=== PATIENT | male | born 1960 | race American Indian/Alaskan Native ===

== ENCOUNTER 2018-10-02 09:11 | Emergency (ER) | payer SELFPAY ==
[2018-10-02 09:36] VITALS: BP 143/91
[2018-10-02] MEDS ORDERED: DECADRON IM ONE (10:26)
[2018-10-02] MEDS ORDERED: BICILLIN L-A IM ONE (10:26)
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
--- NOTE | 2018-10-02 11:41 | XRay Report ---
Chest 2 views: Next History: Coughing. Findings: Cardiomegaly. Trachea is midline. No consolidation, pneumothorax or pleural effusion. Impression: No acute cardiopulmonary findings
== END 2018-10-02 11:20 | disposition home or self-care (01) ==
LOC: ED 09:11
DX: J02.9 Acute pharyngitis, unspecified (principal); I10 Essential (primary) hypertension; Z79.899 Other long term (current) drug therapy
CPT/HCPCS: 71046; 96372; 99283; J0561; J1100

== ENCOUNTER 2019-02-07 11:12 | Emergency (ER) | payer SELFPAY ==
--- NOTE | 2019-02-07 11:21 | Event Note ---
ED Screening Note Date of service: 02/07/19 Time: 11:17 ED Screening Note: 58 y/o male c/o with epigastric pain times 1 week with some SOB. PMH HTN, sleep apnea. Patient has been out of his blood pressure medication time 1 wekk. No PCP. This initial assessment/diagnostic orders/clinical plan/treatment(s) is/are subject to change based on patients health status, clinical progression and re- assessment by fellow clinical providers in the ED. Further treatment and workup at subsequent clinical providers discretion. Patient/guardian urged not to elope from the ED as their condition may be serious if not clinically assessed and managed. Initial orders include:
[2019-02-07 12:15] LABS: Bacteria,Urine 1+ /HPF (Negative); Bilirubin,Urine NEG (Negative); Blood,Urine NEG (Negative); Color,Urine Amber (Yellow); Hyaline Casts,Urine 1 /LPF; Mucus,Urine FEW /HPF
--- NOTE | 2019-02-07 12:30 | Emergency Department Report ---
ED Abdominal Pain HPI - General Chief Complaint: Abdominal Pain Stated Complaint: HARIS/ABD BLOCKAGE Time Seen by Provider: 02/07/19 11:17 Source: patient Mode of arrival: Ambulatory Limitations: No Limitations - History of Present Illness Initial Comments: Mr. Khan is a 58 yo male with hx of HTN, sleep apnea, who presents with constipation for one week. Has had small bowel movements with MiraLAX and prune juice. However now has such constipation and he has difficulty breathing at night due to abdominal bloating. Denies any abdominal pain. Denies chest pain. He admits to a poor quality diet. He is currently uninsured. He is followed at [facility]. He has been out his blood pressure medicine for one week. He takes lisinopril 20 mg tablets. No history of abdominal surgery. No history of colonoscopy. MD Complaint: abdominal pain -: Gradual, week(s) (1) Location: diffuse Severity: mild Quality: fullness Consistency: constant Improves With: nothing Worsens With: nothing Associated Symptoms: denies other symptoms - Related Data Home Medications Medication Instructions Recorded Confirmed Last Taken Lisinopril [Zestril TAB] 20 mg PO QDAY 04/03/13 04/03/13 04/03/13 08:00 Previous Rx's Medication Instructions Recorded Last Taken Type Albuterol Sulfate [Ventolin HFA] 2 puff IH Q4H PRN #1 hfa.aer.ad 04/03/13 Unknown Rx Benzonatate [Tessalon Perle] 100 mg PO TID PRN #30 capsule 04/03/13 Unknown Rx Ciprofloxacin HCl [Ciprofloxacin 500 mg PO BID #14 tablet 04/03/13 Unknown Rx TAB] Cyclobenzaprine HCl [FLEXERIL] 10 mg PO TID PRN #15 tablet 04/03/13 Unknown Rx Ibuprofen [Motrin 800 MG tab] 800 mg PO TID PRN #20 tablet 04/03/13 Unknown Rx amLODIPine [Norvasc] 5 mg PO DAILY #30 tab 04/03/13 Unknown Rx HYDROcodone/ACETAMINOPHEN 15 ml PO Q6H PRN #150 solution 10/02/18 Unknown Rx [Hydrocodon-Acetamin 7.5-325/15] predniSONE [Deltasone] 20 mg PO QDAY #5 tab 10/02/18 Unknown Rx Apixaban [Eliquis] 5 mg PO BID 30 Days #60 tablet 02/07/19 Unknown Rx Lisinopril [Zestril TAB] 20 mg PO QDAY #30 tablet 02/07/19 Unknown Rx Magnesium Citrate [Citrate of 300 ml PO NOW #1 bottle 02/07/19 Unknown Rx Magnesia] Metoprolol [Lopressor TAB] 50 mg PO BID 30 Days #60 tablet 02/07/19 Unknown Rx Allergies Allergy/AdvReac Type Severity Reaction Status Date / Time No Known Allergies Allergy Verified 10/02/18 09:27 ED Review of Systems ROS: Stated complaint: HARIS/ABD BLOCKAGE Other details as noted in HPI Comment: All other systems reviewed and negative Constitutional: denies: fever, malaise Respiratory: shortness of breath Cardiovascular: denies: chest pain Gastrointestinal: abdominal pain. denies: nausea, vomiting, diarrhea ED Past Medical Hx - Past Medical History Previous Medical History?: Yes Hx Hypertension: Yes Additional medical history: sleep apnea (has CPAP) - Surgical History Past Surgical History?: No - Social History Smoking Status: Never Smoker Substance Use Type: Alcohol - Medications Home Medications: Home Medications Medication Instructions Recorded Confirmed Last Taken Type Albuterol Sulfate [Ventolin HFA] 2 puff IH Q4H PRN #1 hfa.aer.ad 04/03/13 Unknown Rx Benzonatate [Tessalon Perle] 100 mg PO TID PRN #30 capsule 04/03/13 Unknown Rx Ciprofloxacin HCl [Ciprofloxacin 500 mg PO BID #14 tablet 04/03/13 Unknown Rx TAB] Cyclobenzaprine HCl [FLEXERIL] 10 mg PO TID PRN #15 tablet 04/03/13 Unknown Rx Ibuprofen [Motrin 800 MG tab] 800 mg PO TID PRN #20 tablet 04/03/13 Unknown Rx Lisinopril [Zestril TAB] 20 mg PO QDAY 04/03/13 04/03/13 04/03/13 08:00 History amLODIPine [Norvasc] 5 mg PO DAILY #30 tab 04/03/13 Unknown Rx HYDROcodone/ACETAMINOPHEN 15 ml PO Q6H PRN #150 solution 10/02/18 Unknown Rx [Hydrocodon-Acetamin 7.5-325/15] predniSONE [Deltasone] 20 mg PO QDAY #5 tab 10/02/18 Unknown Rx Apixaban [Eliquis] 5 mg PO BID 30 Days #60 tablet 02/07/19 Unknown Rx Lisinopril [Zestril TAB] 20 mg PO QDAY #30 tablet 02/07/19 Unknown Rx Magnesium Citrate [Citrate of 300 ml PO NOW #1 bottle 02/07/19 Unknown Rx Magnesia] Metoprolol [Lopressor TAB] 50 mg PO BID 30 Days #60 tablet 02/07/19 Unknown Rx ED Physical Exam - General Limitations: No Limitations General appearance: alert, in no apparent distress - Head Head exam: Present: atraumatic, normocephalic - Eye Eye exam: Present: normal appearance - ENT ENT exam: Present: mucous membranes moist - Neck Neck exam: Present: normal inspection, full ROM - Respiratory Respiratory exam: Present: normal lung sounds bilaterally. Absent: respiratory distress, wheezes, rales, rhonchi - Cardiovascular Cardiovascular Exam: Present: normal rhythm, tachycardia, irregular rhythm, normal heart sounds. Absent: systolic murmur, diastolic murmur, rubs, gallop - GI/Abdominal GI/Abdominal exam: Present: soft, normal bowel sounds. Absent: distended, tenderness, guarding, rigid - Rectal Rectal exam: Present: deferred - Extremities Exam Extremities exam: Present: normal inspection - Back Exam Back exam: Present: normal inspection - Neurological Exam Neurological exam: Present: alert, oriented X3 - Psychiatric Psychiatric exam: Present: normal affect, normal mood - Skin Skin exam: Present: warm, dry, intact, normal color. Absent: rash ED Course Vital Signs 02/07/19 02/07/19 02/07/19 11:18 13:39 13:45 Temperature 97.7 F Pulse Rate 55 L 108 H 115 H Respiratory 18 14 Rate Blood Pressure 177/121 179/112 O2 Sat by Pulse 96 Oximetry 02/07/19 02/07/19 02/07/19 13:46 14:00 14:16 Temperature Pulse Rate 107 H 107 H 96 H Respiratory 15 18 17 Rate Blood Pressure 170/123 183/140 181/109 O2 Sat by Pulse 99 97 99 Oximetry 02/07/19 02/07/19 02/07/19 14:25 14:30 14:46 Temperature Pulse Rate 116 H 111 H 91 H Respiratory 12 14 Rate Blood Pressure 188/177 181/109 188/117 O2 Sat by Pulse 99 99 Oximetry 02/07/19 02/07/19 02/07/19 15:00 15:16 15:30 Temperature Pulse Rate 98 H 95 H 95 H Respiratory 24 14 28 H Rate Blood Pressure 188/117 173/114 173/114 O2 Sat by Pulse 96 99 96 Oximetry 02/07/19 02/07/19 02/07/19 15:46 16:00 16:04 Temperature Pulse Rate 91 H 84 82 Respiratory 20 26 H 26 H Rate Blood Pressure 158/112 158/112 158/112 O2 Sat by Pulse 98 94 96 Oximetry 02/07/19 02/07/19 02/07/19 16:06 16:08 16:09 Temperature Pulse Rate 87 86 89 Respiratory 24 20 13 Rate Blood Pressure 158/112 158/112 134/106 O2 Sat by Pulse 97 97 98 Oximetry 02/07/19 02/07/19 02/07/19 16:10 16:12 16:14 Temperature Pulse Rate 93 H 87 92 H Respiratory 24 28 H 21 Rate Blood Pressure 134/106 134/106 134/106 O2 Sat by Pulse 96 95 99 Oximetry 02/07/19 02/07/19 02/07/19 16:16 16:18 16:20 Temperature Pulse Rate 80 86 83 Respiratory 26 H 22 22 Rate Blood Pressure 124/98 124/98 124/98 O2 Sat by Pulse 96 96 97 Oximetry 02/07/19 02/07/19 02/07/19 16:22 16:24 16:25 Temperature Pulse Rate 90 85 87 Respiratory 25 H 17 Rate Blood Pressure 124/98 124/98 124/98 O2 Sat by Pulse 97 97 Oximetry ED Medical Decision Making - Lab Data Result diagrams: 02/07/19 12:14 02/07/19 12:14 Laboratory Results - last 24 hr 02/07/19 02/07/19 02/07/19 11:29 12:14 12:14 WBC 3.5 L RBC 5.43 H Hgb 16.3 H Hct 49.5 H MCV 91 MCH 30 MCHC 33 RDW 13.6 Plt Count 168 Lymph % (Auto) 30.0 [place] % (Auto) 14.3 H Eos % (Auto) 0.8 Baso % (Auto) 2.2 H Lymph # 1.1 L [place] # 0.5 Eos # 0.0 Baso # 0.1 Seg Neutrophils % 52.7 Seg Neutrophils # 1.9 D-Dimer Sodium 140 Potassium 4.3 Chloride 101.2 Carbon Dioxide 24 Anion Gap 19 BUN 14 Creatinine 1.3 Estimated GFR > 60 BUN/Creatinine Ratio 11 Glucose 88 Calcium 9.2 Total Bilirubin 1.10 AST 25 ALT 21 Alkaline Phosphatase 69 Troponin T NT-Pro-B Natriuret Pep Total Protein 7.5 Albumin 4.0 Albumin/Globulin Ratio 1.1 Lipase 14 TSH Urine Color Tiffany Urine Turbidity Clear Urine pH 5.0 Ur Specific [place] 1.029 Urine Protein 100 mg/dl Urine Glucose (UA) Neg Urine Ketones Neg Urine Blood Neg Urine Nitrite Neg Urine Bilirubin Neg Urine Urobilinogen 2.0 Ur Leukocyte Esterase Neg Urine WBC (Auto) 3.0 Urine RBC (Auto) 1.0 U Epithel Cells (Auto) 1.0 Urine Bacteria (Auto) 1+ Hyaline Casts 1 Urine Mucus Few 02/07/19 02/07/19 02/07/19 12:14 13:20 13:20 WBC RBC Hgb Hct MCV MCH MCHC RDW Plt Count Lymph % (Auto) [place] % (Auto) Eos % (Auto) Baso % (Auto) Lymph # [place] # Eos # Baso # Seg Neutrophils % Seg Neutrophils # D-Dimer Sodium Potassium Chloride Carbon Dioxide Anion Gap BUN Creatinine Estimated GFR BUN/Creatinine Ratio Glucose Calcium Total Bilirubin AST ALT Alkaline Phosphatase Troponin T < 0.010 NT-Pro-B Natriuret Pep 2648 H Total Protein Albumin Albumin/Globulin Ratio Lipase TSH 1.690 Urine Color Urine Turbidity Urine pH Ur Specific [place] Urine Protein Urine Glucose (UA) Urine Ketones Urine Blood Urine Nitrite Urine Bilirubin Urine Urobilinogen Ur Leukocyte Esterase Urine WBC (Auto) Urine RBC (Auto) U Epithel Cells (Auto) Urine Bacteria (Auto) Hyaline Casts Urine Mucus 02/07/19 14:36 WBC RBC Hgb Hct MCV MCH MCHC RDW Plt Count Lymph % (Auto) [place] % (Auto) Eos % (Auto) Baso % (Auto) Lymph # [place] # Eos # Baso # Seg Neutrophils % Seg Neutrophils # D-Dimer 616.72 H Sodium Potassium Chloride Carbon Dioxide Anion Gap BUN Creatinine Estimated GFR BUN/Creatinine Ratio Glucose Calcium Total Bilirubin AST ALT Alkaline Phosphatase Troponin T NT-Pro-B Natriuret Pep Total Protein Albumin Albumin/Globulin Ratio Lipase TSH Urine Color Urine Turbidity Urine pH Ur Specific [place] Urine Protein Urine Glucose (UA) Urine Ketones Urine Blood Urine Nitrite Urine Bilirubin Urine Urobilinogen Ur Leukocyte Esterase Urine WBC (Auto) Urine RBC (Auto) U Epithel Cells (Auto) Urine Bacteria (Auto) Hyaline Casts Urine Mucus - EKG Data 02/07/19 12:44 EKG obtained 1244 Atrial flutter rapid ventricular rate 120 beats a minute normal axis prolonged QTC positive LVH no ST elevation - Radiology Data Radiology results: report reviewed - Medical Decision Making Mr. Khan presents with constipation leading to discomfort and shortness of breath. No indication of congestive heart failure or ACS or pneumonia. +new onset atrial flutter, hx of alcohol use I discussed case with hospitalist Dr. Kilpatrick. He recommended outpatient therapy with lupus. I did agree that this case would be appropriate in the outpatient setting. I have prescribed Eliquis. He was given Eliquis Coupon. Dr. Kilpatrick has agreed to f/u with Mr. Khan in the outpatient setting. With by mouth metoprolol, repeat heart rate 80 beats for minute. I provided extensive verbal education and instruction. With elevated D dimer and reports of shortness of breath. CT angiogram negative for PTE. Mild interstitial edema. Discharged to home. Critical care attestation.: If time is entered above; I have spent that time in minutes in the direct care of this critically ill patient, excluding procedure time. ED Disposition Clinical Impression: Constipation, Atrial flutter with rapid ventricular response Disposition: DC-01 TO HOME OR SELFCARE Is pt being admited?: No Does the pt Need Aspirin: No Condition: Stable Instructions: Atrial Flutter (ED) Additional Instructions: You have an irregular heart beat. You will need to take the blood thinner Eliquis in order to prevent stroke. Please use the coupon given to you for a free 30 day supply. Prescriptions: Magnesium Citrate [Citrate of Magnesia] 300 ml PO NOW #1 bottle Apixaban [Eliquis] 5 mg PO BID 30 Days #60 tablet Metoprolol [Lopressor TAB] 50 mg PO BID 30 Days #60 tablet Lisinopril [Zestril TAB] 20 mg PO QDAY #30 tablet Referrals: JOSÉ KILPATRICK MD [Staff Physician] - 3-5 Days
[2019-02-07] MEDS ORDERED: METOPROLOL TARTRATE 50 MG TAB PO ONE ×3 (12:46→14:08)
[2019-02-07 12:55] LABS: Basophils % (Auto) 2.2 % (0.0-1.8); Eosinophils % (Auto) 0.8 % (0.0-4.3); Hematocrit 49.5 % (35.5-45.6); Hemoglobin 16.3 gm/dl (11.8-15.2); Lymphocytes # (Auto) 1.1 K/mm3 (1.2-5.4); Mean Corpuscular HGB Conc 33 % (32-34); Mean Corpuscular Volume 91 fl (84-94); Monocytes % (Auto) 14.3 % (0.0-7.3); Red Blood Count 5.43 M/mm3 (3.65-5.03); Red Cell Distribution Width 13.6 % (13.2-15.2)
[2019-02-07 12:56] LABS: Basophils # (Auto) 0.1 K/mm3 (0.0-0.1); Monocytes # (Auto) 0.5 K/mm3 (0.0-0.8)
[2019-02-07 12:58] LABS: Alanine Aminotransferase 21 units/L (7-56); BUN/Creatinine Ratio 11; Blood Urea Nitrogen 14 mg/dL (9-20); Calcium 9.2 mg/dL (8.4-10.2); Hemolysis Index 13
--- NOTE | 2019-02-07 13:26 | XRay Report ---
CHEST 1 VIEW INDICATION: dyspnea. COMPARISON: 10/02/2018 FINDINGS: Support devices: None. Heart: Within normal limits. Lungs/Pleura: No acute air space or interstitial disease. Additional findings: None. IMPRESSION: No acute findings. Signer Name: Jarad Cason Jr, MD Signed: 02/07/2019 1:21 PM Workstation Name: [id number]
[2019-02-07 13:42] LABS: Platelet Count 168 K/mm3 (140-440)
[2019-02-07] MEDS ORDERED: APIXABAN 5 MG TAB PO ONE (14:09)
[2019-02-07] MEDS ORDERED: LACTULOSE 20 GM/30 ML ORAL LIQD PO ONE (14:30)
[2019-02-07] MEDS ORDERED: LISINOPRIL 20 MG TAB PO ONE (16:06)
--- NOTE | 2019-02-07 17:06 | Cat Scan Report ---
CTA chest with contrast INDICATION : elevated d-dimer shortness of breath. TECHNIQUE: Axial imaging performed through the chest, with contrast bolus timing set to maximize opa cification of the pulmonary arteries. 3-plane MIP reformatted images were obtained. All CT scans at this location are performed using CT dose reduction for ALARA by means of automated exposure control. 100 mL of intravenous contrast administered. COMPARISON: Chest x-ray from today FINDINGS: Bolus: Contrast bolus timing is adequate. PTE: No filling defect is present to suggest PTE. Mediastinum: There is mild cardiomegaly. There is mediastinal and hilar adenopathy. Lungs: Mild interstitial prominence is seen centrally in the lungs as may be seen with mild edema. N o significant pleural effusion identified. There is superimposed patchy airspace disease in the right upper lobe posteriorly as seen on image #79 as an example. Upper abdomen: Limited imaging of the upper abdomen shows nothing acute. There is punctate nonobstr uctive nephrolithiasis in the upper pole the right kidney and there is also reflux of contrast into t he hepatic veins which can be seen with a component of systolic dysfunction of the heart. A subcentim eter hypodensity in the right lobe of the liver near the dome on image #162 is technically indetermin ate but statistically likely benign in the absence of any known malignancy. Bones: Degenerative changes in the spine with nothing acute. IMPRESSION: 1. Negative for PTE. 2. Mild interstitial edema. Minimal patchy airspace disease in the right upper lobe could be seen wit h an evolving infectious process or alveolar edema. No significant effusion. 3. Mediastinal and hilar adenopathy. Findings could be reactive given edema; however, short-term foll ow-up recommended to ensure resolution since a neoplastic process is technically within the different ial. Signer Name: Rusty Ruelas MD Signed: 02/07/2019 5:02 PM Workstation Name: [id number]
[2019-02-07 17:19] VITALS: BP 116/79
== END 2019-02-07 17:20 | disposition home or self-care (01) ==
LOC: ED 11:12
DX: K59.00 Constipation, unspecified (principal); I48.92 Unspecified atrial flutter; I10 Essential (primary) hypertension
CPT/HCPCS: 36415; 71045; 71275; 80053; 81001; 83690; 83880; 84443; 84484; 85025; 85379; 93005; 93010; 99285; Q9967

== ENCOUNTER 2020-09-15 09:05 | Emergency (ER) | payer OTHER ==
[2020-09-15 09:22] VITALS: BP 139/80
[2020-09-15] MEDS ORDERED: CYCLOBENZAPRINE 10 MG TAB PO ONE (10:34)
[2020-09-15] MEDS ORDERED: dexAMETHasone 4 MG/ML VIAL IM ONE (10:34)
[2020-09-15] MEDS ORDERED: IBUPROFEN 800 MG TAB PO ONE (10:34)
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
== END 2020-09-15 11:20 | disposition home or self-care (01) ==
LOC: ED 09:05
DX: M54.5 Low back pain (principal); I10 Essential (primary) hypertension; Z79.1 Long term (current) use of non-steroidal anti-inflammatories (NSAID); Z79.899 Other long term (current) drug therapy; V49.49XA Driver injured in collision with other motor vehicles in traffic accident, initial encounter; Y93.89 Activity, other specified; Y92.410 Unspecified street and highway as the place of occurrence of the external cause; Y99.8 Other external cause status
CPT/HCPCS: 96372; 99282; J1100